=== PATIENT | female | born 1950 | race Caucasian/White ===

== ENCOUNTER 2018-05-23 15:17 | Outpatient (CLI) | payer MEDICARE | END 2018-05-23 15:18 | disposition home or self-care (01) | LOC: BICMAMMO 15:17 | PROVIDERS: ATTEND Obstetrics & Gynecology | DX: Z12.31 Encounter for screening mammogram for malignant neoplasm of breast (principal) | CPT/HCPCS: 77063; 77067 ==

== ENCOUNTER 2018-09-02 14:53 | Outpatient (CLI) | payer MEDICARE ==
--- NOTE | 2018-09-02 17:21 | BD ---
DEXA BONE SCAN: Date: 09/02/18 HISTORY: Screening for osteoporosis. FINDINGS: Lumbar Spine: BMD (g/cm2) L1 0.743 T-Score: -2.2 L2 0.872 T-Score: -1.4 L3 0.808 T-Score: -2.5 L4 0.810 T-Score: -2.3 L1-L4 0.810 T-Score: -2.2 Evidence for osteopenia with increased risk for fracture, with bone mineral density increasing 17.3% from prior exam of 12/03/15. Left Femur: Femoral Neck: 0.604 T-Score: -2.2 Total Femur: 0.784 T-Score: -1.3 Evidence for osteopenia with increased risk for fracture, with bone mineral density increasing 2.6% f rom 12/03/15. FRAX Score: Major osteoporotic fracture: 11% Hip fracture: 2.1% POS: [facility]
== END 2018-09-02 14:54 | disposition home or self-care (01) ==
LOC: BICMAMMO 14:53
PROVIDERS: ATTEND Obstetrics & Gynecology
DX: Z13.820 Encounter for screening for osteoporosis (principal)
CPT/HCPCS: 77080

== ENCOUNTER 2019-06-02 16:07 | Outpatient (CLI) | payer MEDICARE ==
--- NOTE | 2019-06-02 16:53 | MMO ---
Bilateral MAMMO Bilat Screen [facility]. CLINICAL HISTORY: Patient is 68 years old and is seen for screening. The patient has no family history of breast cancer. The patient has no personal history of cancer. VIEWS: The views performed were: bilateral craniocaudal with tomosynthesis; bilateral mediolateral oblique with tomosynthesis; and bilateral exaggerated craniocaudal. FILMS COMPARED: The present examination has been compared to prior imaging studies performed at [facility] on 10/14/2014, 12/03/2015, 04/25/2017 and 05/23/2018. MAMMOGRAM FINDINGS: The breasts are heterogeneously dense, which could obscure a lesion on mammography. Finding 1: There are benign scattered densities in both breasts. Finding 2: There are benign appearing calcifications seen in the right breast. There are no suspicious masses, suspicious calcifications, or new areas of architectural distortion. IMPRESSION: THERE IS NO MAMMOGRAPHIC EVIDENCE OF MALIGNANCY. A ROUTINE FOLLOW-UP MAMMOGRAM IN 1 YEAR IS RECOMMENDED. THE RESULTS OF THIS EXAM WERE SENT TO THE PATIENT. ACR BI-RADS Category 2 - Benign finding MAMMOGRAPHY NOTE: 1. A negative mammogram report should not delay a biopsy if a dominant of clinically suspicious mass is present. 2. Approximately 10% to 15% of breast cancers are not detected by mammography. 3. Adenosis and dense breasts may obscure an underlying neoplasm. Reported by: KELSEY VASQUEZ MD Electonically Signed: [id number]
== END 2019-06-02 16:08 | disposition home or self-care (01) ==
LOC: BICMAMMO 16:07
PROVIDERS: ATTEND Obstetrics & Gynecology
DX: Z12.31 Encounter for screening mammogram for malignant neoplasm of breast (principal)
CPT/HCPCS: 77063; 77067

== ENCOUNTER 2020-08-05 14:04 | Outpatient (CLI) | payer MEDICARE ==
--- NOTE | 2020-08-05 14:29 | ULT ---
LIMITED LEFT BREAST ULTRASOUND: History Abnormal mammogram of 07/29/2020. FINDINGS: Sonographic evaluation of the left retroareolar breast demonstrates a 1.2 x 0.5 x 1.3 cm cyst corresp onding to the mass on the mammogram. IMPRESSION: BIRADS category 2, benign findings. Return to annual mammographic screening. POS: OFF
== END 2020-08-05 14:05 | disposition home or self-care (01) ==
LOC: BICULT 14:04
PROVIDERS: ATTEND Obstetrics & Gynecology
DX: N63.20 Unspecified lump in the left breast, unspecified quadrant (principal)

== ENCOUNTER 2021-09-20 15:51 | Outpatient (CLI) | payer MEDICARE | END 2021-09-20 15:52 | disposition home or self-care (01) | LOC: BICMAMMO 15:51 | PROVIDERS: ATTEND Obstetrics & Gynecology | DX: Z12.31 Encounter for screening mammogram for malignant neoplasm of breast (principal) | CPT/HCPCS: 77063; 77067 ==

== ENCOUNTER 2022-07-18 14:29 | Outpatient (CLI) | payer MEDICARE | END 2022-07-18 14:30 | disposition home or self-care (01) | LOC: BICMAMMO 14:29 | PROVIDERS: ATTEND Obstetrics & Gynecology | DX: M85.89 Other specified disorders of bone density and structure, multiple sites (principal) | CPT/HCPCS: 77080 ==

== ENCOUNTER 2022-09-15 10:09 | Outpatient (CLI) | payer MEDICARE | END 2022-09-15 10:10 | disposition home or self-care (01) | LOC: MRI 10:09 | PROVIDERS: ATTEND Anesthesiology Pain Medicine | DX: M17.11 Unilateral primary osteoarthritis, right knee (principal); S83.511A Sprain of anterior cruciate ligament of right knee, initial encounter; S83.281A Other tear of lateral meniscus, current injury, right knee, initial encounter; M25.461 Effusion, right knee; S76.111A Strain of right quadriceps muscle, fascia and tendon, initial encounter ==

== ENCOUNTER 2022-10-03 15:27 | Outpatient (CLI) | payer MEDICARE | END 2022-10-03 15:28 | disposition home or self-care (01) | LOC: BICMAMMO 15:27 | PROVIDERS: ATTEND Obstetrics & Gynecology | DX: Z12.31 Encounter for screening mammogram for malignant neoplasm of breast (principal) | CPT/HCPCS: 77063; 77067 ==